=== PATIENT | male | born 1960 | race Caucasian/White ===

== ENCOUNTER 2020-02-21 07:38 | Observation (INO) | payer BC ==
[2020-02-21] VITALS (7 sets, daily range): BP systolic 135–168; BP diastolic 67–99
[~2020-02-21] VITALS: Ht 167.6 cm; Wt 83.5 kg
[~2020-02-21 07:38] MED LIST: NKHM
[2020-02-21 08:04] LABS: BASO # 0.1 10*3/uL (0.0-0.1); BASO % 1.4 % (0.0-1.0); EOS # 0.1 10*3/uL (0.0-0.4); EOS % 1.7 % (1.0-4.0); HEMATOCRIT 48.4 % (42.0-52.0); LYMPH # 2.8 10*3/uL (1.3-4.4); LYMPH % 39.1 % (27.0-41.0); MEAN CELL VOLUME 87.1 fl (80.0-94.0); MEAN CORPUSCULAR HGB 28.2 pg (27.0-31.0); MEAN CORPUSCULAR HGB CONC 32.4 g/dl (33.0-37.0); MEAN PLATELET VOLUME 10.2 fl (9.6-12.3); MONO # 0.7 10*3/uL (0.1-1.0); MONO % 10.5 % (3.0-9.0); NEUT # 3.3 10*3/uL (2.3-7.9); NEUT % 47.2 % (47.0-73.0); PLATELET COUNT AUTOMATED 273 10*3/uL (130-400); RED BLOOD COUNT 5.56 10*6/uL (4.50-5.90); WHITE BLOOD COUNT 7.1 10*3/uL (4.8-10.8)
[2020-02-21 08:15] LABS: ALBUMIN 3.8 gm/dl (3.1-4.5); ALKALINE PHOSPHATASE 71 U/L (45-117); BUN 7 mg/dl (7-24); CHLORIDE 103 mmol/L (98-107); CREATININE 1.13 mg/dL (0.70-1.30); POTASSIUM 3.9 mmol/L (3.5-5.1); SGOT/AST 27 IU/L (3-35); SGPT/ALT 45 U/L (12-78); SODIUM 137 mmol/L (136-145); TOTAL PROTEIN 7.9 gm/dL (6.4-8.2)
[2020-02-21 08:16] LABS: ACT PARTIAL THROMBO TIME 26.3 SECONDS (20.0-32.1); TROPONIN I < 0.015 ng/ml (<0.045)
--- NOTE | 2020-02-21 09:21 | NUR ---
FAXED SBAR TO [facility]E
--- NOTE | 2020-02-21 09:30 | NUR ---
A 59, admitted to , under the services of CIARAN Vickers DO with a diagnosis of CHEST PAIN. Chief complaint is LEFT LOWER RIB AREA PAIN STARTED 1PM ON 02/19. Patient arrived via wheel chair from ER. Monitor applied. Initial assessment completed. Vital signs taken and recorded. CIARAN VICKERS DO notified of admission to the unit. Orders received. See assessment for past medical history, medications and allergies. Patient and/or family oriented to unit. Clothing/patient valuable form completed. EDWARD BILLINGS
[2020-02-21] MEDS ORDERED: PROAIR HFA8.5 GM INH (10:59)
[2020-02-21] MEDS ORDERED: MEDI-FIRST ASP325 MG PO (10:59)
--- NOTE | 2020-02-21 11:04 | NUR ---
OFFICE NOTIFIED OF NEW CONSULT.
--- NOTE | 2020-02-21 12:55 | NUR ---
PATIENT CONTINUES TO C/O LEFT LOWER RIB AREA PAIN. MEDICATED WITH NORCO PER PRN ORDER. WILL CONTINUE TO MONITOR.
--- NOTE | 2020-02-21 15:39 | NUR ---
LITA DAVIS NOTIFIED OF NORCO BEING INEFFECTIVE. NEW ORDERS RECEIVED TO GIVE ONE TIME DOSE OF SOLUMEDROL AND TO START FLEXERIL.
--- NOTE | 2020-02-21 23:01 | NUR ---
DR. SAPP NOTIFIED OF PATIENT'S BLOOD PRESSURE OF 150/100 MANUALLY.
[2020-02-22 06:54] LABS: BASO % 0.1 % (0.0-1.0); HEMATOCRIT 50.9 % (42.0-52.0); LYMPH # 1.1 10*3/uL (1.3-4.4); LYMPH % 10.2 % (27.0-41.0); MEAN CELL VOLUME 86.7 fl (80.0-94.0); MEAN CORPUSCULAR HGB 27.9 pg (27.0-31.0); MEAN CORPUSCULAR HGB CONC 32.2 g/dl (33.0-37.0); MEAN PLATELET VOLUME 10.7 fl (9.6-12.3); MONO # 0.3 10*3/uL (0.1-1.0); MONO % 2.2 % (3.0-9.0); NEUT # 9.7 10*3/uL (2.3-7.9); PLATELET COUNT AUTOMATED 307 10*3/uL (130-400); RED BLOOD COUNT 5.87 10*6/uL (4.50-5.90); WHITE BLOOD COUNT 11.2 10*3/uL (4.8-10.8)
[2020-02-22 07:12] LABS: ALBUMIN 3.6 gm/dl (3.1-4.5); ALKALINE PHOSPHATASE 72 U/L (45-117); BUN 14 mg/dl (7-24); CHLORIDE 106 mmol/L (98-107); CHOLESTEROL 218 mg/dL (<200); CREATININE 1.01 mg/dL (0.70-1.30); FREE T4 1.03 ng/dl (0.76-1.46); HDL CHOLESTEROL 50 mg/dl (40-60); LDL CHOLESTEROL 146 mg/dL (9-159); POTASSIUM 4.4 mmol/L (3.5-5.1); SGOT/AST 12 IU/L (3-35); SGPT/ALT 34 U/L (12-78); SODIUM 136 mmol/L (136-145); TOTAL PROTEIN 7.6 gm/dL (6.4-8.2); TRIGLYCERIDES 109 mg/dl (<150); VLDL CHOLESTEROL 22 mg/dL (6-40)
[2020-02-22 07:17] LABS: THYROID STIM HORMONE (HS) 0.494 uIU/ml (0.358-4.75)
[2020-02-22 08:00] VITALS: BP 140/90
[2020-02-22] MEDS ORDERED: PREDNISONE10 MG PO (08:24)
[2020-02-22] MEDS ORDERED: CYCLOBENZAPRINE10 MG PO (08:24)
[2020-02-22] MEDS ORDERED: LISINOPRIL10 M1 PO (08:31)
--- NOTE | 2020-02-22 08:31 | NUR ---
PATIENT BEING DISCHARGED TO HOME.
[2020-02-22 08:46] LABS: VITAMIN D, 25-HYDROXY 44.3 ng/mL (30-100)
--- NOTE | 2020-02-22 09:00 | NUR ---
Compressor Service Technician in to talk to patient. Patient states lives at home with alone. There are 2 steps in the home. Physician: gin mccartney Pharmacy: [facility] Home health services: none Patient's level of ADLs: INDEPENDENT Patient has working utilities: all working DME: none Follow-up physician's appointment after d/c: will be made by hospitalist nurse director upon discharge Does patient want to access PORTAL?: no Discharge plan discussed with patient, he states he lives at home alone, is independent in adls and ambulation, works, drives, states he will return home when discharged and denies any home needs, patient will drive himself home, case management will follow. ENDY FALL
--- NOTE | 2020-02-22 09:26 | NUR ---
PATIENT HAS LEFT WITH INSTRUCTIONS.
== END 2020-02-22 09:26 | disposition home or self-care (01) ==
LOC: ED 07:38 → EDHOLD 08:29 → 4E 08:29
PROVIDERS: Emergency Medicine; Registered Nurse; ADMIT Internal Medicine
DX: M94.0 Chondrocostal junction syndrome [Tietze] (principal); J44.9 Chronic obstructive pulmonary disease, unspecified; I10 Essential (primary) hypertension; I72.9 Aneurysm of unspecified site

== ENCOUNTER → 2021-06-14 | Outpatient (CLI) | payer OTHER ==
[~2021-06-14] MED LIST changes: +CYCLOBENZAPRINE10 MG PO; +LISINOPRIL10 M1 PO; +MEDI-FIRST ASP325 MG PO; +PREDNISONE10 MG PO; +PROAIR HFA8.5 GM INH
== END | disposition home or self-care (01) ==
LOC: RAD 16:40
PROVIDERS: ATTEND Family Medicine
DX: M19.012 Primary osteoarthritis, left shoulder (principal)